=== PATIENT | male | born 1995 ===

== ENCOUNTER 2022-01-12 15:07 | Emergency (ER) | payer SELFPAY ==
--- NOTE | 2022-01-12 16:08 | XRay Report ---
CHEST 1 VIEW 01/12/2022 2:59 PM INDICATION / CLINICAL INFORMATION: chest pain, hx of 7 pneumo. COMPARISON: None available. FINDINGS: SUPPORT DEVICES: None. HEART / MEDIASTINUM: No significant abnormality. LUNGS / PLEURA: No significant pulmonary or pleural abnormality. No pneumothorax. Postsurgical change s of the right upper lobe. ADDITIONAL FINDINGS: No significant additional findings. IMPRESSION: 1. No acute findings. Signer Name: Alli Salinas MD Signed: 01/12/2022 4:04 PM Workstation Name: [id number]
[2022-01-12] MEDS ORDERED: SODIUM CHLORIDE 0.9% 1000 ML 1,000 ML IV ONE (17:22)
[2022-01-12] MEDS ORDERED: FAMOTIDINE 20 MG/2 ML INJ IV ONE (17:22)
[2022-01-12] MEDS ORDERED: ONDANSETRON 4 MG/2 ML INJ IV ONE (17:22)
[2022-01-12 18:09] VITALS: BP 106/65
--- NOTE | 2022-01-12 18:17 | Emergency Department Report ---
ED Chest Pain HPI - General Chief Complaint: Chest Pain Stated Complaint: CHEST PAIN Time Seen by Provider: 01/12/22 16:48 Source: EMS Mode of arrival: Ambulatory Limitations: No Limitations - History of Present Illness Initial Comments: 26-year-old male with a past medical history of recurrent right-sided pneumothoraces (x7) status post pleurodesis in 2018 without recurrent since presents to the hospital with complaint of chest pain with fear of recurrent pneumothorax. Patient states 30 minutes prior to arrival he developed mid chest pain described as a melon trying to squeeze to a small hole. Pain worse with inspiration. He denies history of PE/DVT, calf tenderness, leg edema, or recent travel. He does not smoke cigarettes but does endorse marijuana use. Patient also states he has chronic history of vomiting/cyclic vomiting syndrome and is also requesting labs, IV fluid, and Zofran - Related Data Allergies Allergy/AdvReac Type Severity Reaction Status Date / Time No Known Allergies Allergy Verified 01/12/22 15:11 Heart Score - HEART Score History: Slightly suspicious EKG: Normal Age: < 45 Risk factors: No known risk factors Troponin: < normal limit (not done) HEART Score: 0 - EKG Read Time Time EKG Completed: 00:00 (no performed) EKG Read Time: 00:00 (not performed) ED Review of Systems ROS: Stated complaint: CHEST PAIN Other details as noted in HPI Comment: All other systems reviewed and negative ED Physical Exam - General Limitations: No Limitations - Other Other exam information: General: No acute distress Head: Atraumatic Eyes: normal appearance ENT: Moist mucous membranes Neck: Normal appearance, no midline tenderness Chest: Clear to auscultation bilaterally CV: Regular rate and rhythm Abdomen: Soft, normal bowel sounds, nontender, nondistended, no rebound or guarding Back: Normal inspection Extremity: Normal inspection, full range of motion, no calf tenderness or leg Neuro: Alert O x 3, no facial asymmetry, speech clear, no gross motor sensory deficit Psych: Anxious Skin: No rash ED Course Vital Signs 01/12/22 01/12/22 01/12/22 15:11 15:41 15:45 Temperature Pulse Rate 95 H 69 79 Respiratory 9 L Rate Blood Pressure 111/71 Blood Pressure 117/56 [Left] O2 Sat by Pulse 100 95 Oximetry 01/12/22 01/12/22 01/12/22 16:01 16:15 16:31 Temperature Pulse Rate 70 64 68 Respiratory 17 12 24 Rate Blood Pressure 109/61 96/60 99/63 Blood Pressure [Left] O2 Sat by Pulse 92 93 99 Oximetry 01/12/22 01/12/22 01/12/22 16:45 17:01 17:15 Temperature Pulse Rate 67 90 Respiratory 19 29 H Rate Blood Pressure 106/62 94/54 106/65 Blood Pressure [Left] O2 Sat by Pulse 97 100 100 Oximetry 01/12/22 01/12/22 17:26 17:31 Temperature 98.0 F Pulse Rate 69 Respiratory 17 Rate Blood Pressure 106/65 Blood Pressure [Left] O2 Sat by Pulse 95 Oximetry LYNN score - Lynn Score Age > 65: (0) No Aspirin use within the Past 7 Days: (0) No 3 or more CAD Risk Factors: (0) No 2 or more Angina events in past 24 hrs: (0) No Known CAD with more than 50% Stenosis: (0) No Elevated Cardiac Markers: (0) No ST Deviation Greater than 0.5mm: (0) No LYNN Score: 0 ED Medical Decision Making - Radiology Data Radiology results: report reviewed (Chest x-ray: Negative for pneumothorax as per radiology, no acute) - Medical Decision Making 26-year-old male with a past medical history of recurrent right-sided pneumothoraces status post pleurodesis in 2018 without recurrent since presents to the hospital with complaint of chest pain with fear of recurrent pneumothorax. Patient informed of negative chest x-ray but states he has been misdiagnosed with a negative pneumothorax in the past and had to return to the ER. Therefore, a CAT scan was ordered. Patient also states he has a history of cyclic vomiting syndrome and requested labs, IV normal saline, and Zofran. Abdomen was benign on examination. Vital signs normal without hypoxia. Patient is PERC score is 0 with low concern for DVT/PE. Prior to receiving CAT scan and labs patient apparently left the department and signed out AGAINST MEDICAL ADVICE as per nursing note As per ED tracking patient eloped from the department at 17:45. I Was not informed or made aware until after patient has left the department Critical Care Time: No Critical care attestation.: If time is entered above; I have spent that time in minutes in the direct care of this critically ill patient, excluding procedure time. ED Disposition Clinical Impression: Chest pain, History of pneumothorax Disposition: 07 LEFT AWOL/ELOPED Is pt being admited?: No Does the pt Need Aspirin: No Condition: Stable Time of Disposition: 18:21
== END 2022-01-12 17:45 | disposition left against medical advice (07) ==
LOC: ED 15:07
DX: R07.9 Chest pain, unspecified (principal); J93.81 Chronic pneumothorax
CPT/HCPCS: 71045; 99283